=== PATIENT | female | born 1955 | race Caucasian/White ===

== ENCOUNTER 2025-09-24 12:14 | Inpatient (IN) | payer MEDICARE, OTHER ==
[~2025-09-24] VITALS: Ht 175.3 cm; Wt 82.1 kg
[2025-09-24 13:12] LABS: PLATELET COUNT (AUTO) 247 K/uL (150-450); RED BLOOD CELL COUNT(AUTO) 5.08 MIL/uL (4.0-5.2); RED CELL DISTRIBUTION WIDTH 14.7 % (11.5-15.0); WHITE BLOOD COUNT (AUTO) 6.9 K/uL (4.3-11.0)
[2025-09-24 13:20] LABS: CALCIUM, SERUM 9.5 mg/dL (8.5-10.1); CREATININE 1.0 mg/dL (0.6-1.3); SODIUM SERUM 136 mmol/L (136-145); UREA NITROGEN, BLOOD 14 mg/dL (7-18)
[2025-09-24 13:33] LABS: NT-PRO BNP 478 pg/mL (0-125)
[2025-09-24] MEDS ORDERED: LEVO50TA8 PO (15:30)
[2025-09-24] MEDS ORDERED: CYCL10TA9 PO (15:30)
[2025-09-24] MEDS ORDERED: LISI20TA30 PO (15:30)
[2025-09-24] MEDS ORDERED: METO50TA16 PO (15:30)
[2025-09-24] MEDS ORDERED: SERT50TA PO (15:30)
[2025-09-24] MEDS ORDERED: ATOR20TA PO (15:30)
[2025-09-24] MEDS ORDERED: TRIA1CAP6 PO (15:30)
[2025-09-24] MEDS ORDERED: FLUT16SP BNOSTRILS (15:30)
[2025-09-24] MEDS ORDERED: ENOXAPARIN SODIUM 80 MG/0.8 ML DISP.SYRIN SQ ONE (17:09)
[2025-09-24] MEDS: ENOXAPARIN SODIUM 80 MG/0.8 ML DISP.SYRIN SQ ONE (17:12)
[2025-09-24] MEDS ORDERED: MAGNESIUM HYDROXIDE 30 ML UDC PO PRN (17:30)
[2025-09-24] MEDS ORDERED: METOPROLOL TARTRATE 25 MG TABLET PO SCH (17:30)
[2025-09-24] MEDS ORDERED: ACETAMINOPHEN 325 MG TABLET PO PRN (17:30)
[2025-09-24] MEDS ORDERED: MAG HYDROX/AL HYDROX/SIMETH 30 ML UDC PO PRN (17:30)
[2025-09-24] MEDS ORDERED: ONDANSETRON HCL/PF 4 MG/2 ML VIAL IVP PRN (17:30)
[2025-09-24] MEDS ORDERED: Z GUARD REMEDY 4 OZ OINT TP PRN (17:30)
[2025-09-24 17:58] VITALS: BP 163/119; TEMP 98.7; O2SAT 100
[2025-09-24 20:00] VITALS: BP 186/87; TEMP 97.5; O2SAT 97
[2025-09-24] MEDS: METOPROLOL TARTRATE 25 MG TABLET PO SCH (21:21)
[2025-09-24] MEDS: LISINOPRIL (20MG) 20 MG TABLET PO SCH (21:22)
[2025-09-24] MEDS: ATORVASTATIN 40 MG TABLET PO SCH (21:22)
[2025-09-24] MEDS: TRIAMTERENE/HYDROCHLOROTHIAZID (37.5/25MG) 1 UDCAP PO SCH ×2 (21:26→21:29)
[2025-09-24] MEDS: ZOLPIDEM TARTRATE 5 MG TABLET PO PRN (23:57)
[2025-09-25] VITALS (7 sets, daily range): BP systolic 116–152; BP diastolic 77–100; TEMP 97.3–97.9; O2SAT 93–100
[2025-09-25] MEDS: HYDROMORPHONE 1 MG/1 ML DISP.SYRIN IV PRN ×2 (04:57→13:35)
[2025-09-25] MEDS ORDERED: LISINOPRIL (20MG) 20 MG TABLET PO SCH (07:30)
[2025-09-25] MEDS: LEVOTHYROXINE SODIUM 50 MCG TABLET PO SCH (08:09)
[2025-09-25] MEDS: SERTRALINE HCL 50 MG TABLET PO SCH (08:10)
[2025-09-25 08:11] LABS: PLATELET COUNT (AUTO) 259 K/uL (150-450); RED BLOOD CELL COUNT(AUTO) 4.79 MIL/uL (4.0-5.2); RED CELL DISTRIBUTION WIDTH 14.4 % (11.5-15.0); WHITE BLOOD COUNT (AUTO) 6.1 K/uL (4.3-11.0)
[2025-09-25 08:35] LABS: CALCIUM, SERUM 9.2 mg/dL (8.5-10.1); CREATININE 0.9 mg/dL (0.6-1.3); PHOSPHORUS 4.4 mg/dL (2.5-4.9); SODIUM SERUM 140.0 mmol/L (136-145); UREA NITROGEN, BLOOD 16.0 mg/dL (7-18)
[2025-09-26 04:00] VITALS: BP 147/88; TEMP 97.5; O2SAT 95
[2025-09-26 04:23] VITALS: BP 147/88; TEMP 97.5; O2SAT 95
[2025-09-26 07:51] LABS: CALCIUM, SERUM 9.6 mg/dL (8.5-10.1); CREATININE 0.9 mg/dL (0.6-1.3); SODIUM SERUM 139.0 mmol/L (136-145); UREA NITROGEN, BLOOD 18.0 mg/dL (7-18)
[2025-09-26 08:00] VITALS: BP 140/100; TEMP 97.6; O2SAT 99
[2025-09-26 08:08] VITALS: BP 140/105
[2025-09-26] MEDS ORDERED: LOPE2CAP40 PO (11:27)
[2025-09-26] MEDS: LOPERAMIDE HCL (2 MG CAP) 2 MG CAPSULE PO ONE (11:30)
== END 2025-09-26 15:28 | disposition home health service (06) | DRG 310 ==
LOC: ER 14:15 → TELE1 17:41 → MEDSG1 09-25 16:14
PROVIDERS: ADMIT Internal Medicine; ATTEND Nurse Practitioner Acute Care
DX: I47.10 Supraventricular tachycardia, unspecified (principal); I11.0 Hypertensive heart disease with heart failure; E03.9 Hypothyroidism, unspecified; F32.A Depression, unspecified; E78.5 Hyperlipidemia, unspecified; Z88.6 Allergy status to analgesic agent; Z88.5 Allergy status to narcotic agent; Z91.0120 Allergy to eggs, unspecified; Z91.013 Allergy to seafood; Z91.018 Allergy to other foods; G89.29 Other chronic pain; I48.91 Unspecified atrial fibrillation; R19.7 Diarrhea, unspecified
CPT/HCPCS: 36415; 71045-TC; 80048-TC; 83735-TC; 83880; 84100-TC; 84439-TC; 84443-TC; 84484-TC; 85025-TC; 85378-TC; 93307-TC; G0378; J1171; J1650

== ENCOUNTER 2025-10-04 17:50 | Emergency (ER) | payer MEDICARE, OTHER ==
[~2025-10-04] VITALS: Ht 165.1 cm; Wt 82.1 kg
[~2025-10-04 17:50] MED LIST: ATOR20TA PO; CYCL10TA9 PO; FLUT16SP BNOSTRILS; LEVO50TA8 PO; LISI20TA30 PO; LOPE2CAP40 PO; METO50TA16 PO; SERT50TA PO; TRIA1CAP6 PO
[2025-10-04] MEDS ORDERED: dexaMETHasone SOD PHOSPHATE 10 MG/ML VIAL IV ONE (19:00)
[2025-10-04] MEDS ORDERED: PROCHLORPERAZINE EDISYLATE 10 MG/2 ML VIAL IVP ONE (19:00)
[2025-10-04] MEDS ORDERED: LABETALOL HCL IV 100MG VIAL IV ONE (19:00)
[2025-10-04 19:01] LABS: CALCIUM, SERUM 9.1 mg/dL (8.5-10.1); CREATININE 0.8 mg/dL (0.6-1.3); SODIUM SERUM 142.0 mmol/L (136-145); UREA NITROGEN, BLOOD 11.0 mg/dL (7-18)
[2025-10-04] MEDS ORDERED: CLONIDINE HCL 0.1 MG TABLET ONE (20:23)
[2025-10-04 20:25] LABS: PLATELET COUNT (AUTO) 260 K/uL (150-450); RED BLOOD CELL COUNT(AUTO) 4.55 MIL/uL (4.0-5.2); RED CELL DISTRIBUTION WIDTH 14.9 % (11.5-15.0); WHITE BLOOD COUNT (AUTO) 6.8 K/uL (4.3-11.0)
[2025-10-04] MEDS: CLONIDINE HCL 0.1 MG TABLET PO ONE (20:39)
[2025-10-04] MEDS: PROCHLORPERAZINE MALEATE 10 MG TABLET PO ONE (20:39)
[2025-10-04 23:37] VITALS: BP 142/79; TEMP 97.9; O2SAT 98
== END 2025-10-04 23:39 | disposition home or self-care (01) ==
LOC: ER 18:00
DX: I11.9 Hypertensive heart disease without heart failure (principal); I48.91 Unspecified atrial fibrillation; R03.0 Elevated blood-pressure reading, without diagnosis of hypertension; R07.9 Chest pain, unspecified; R51.9 Headache, unspecified; Z88.5 Allergy status to narcotic agent; Z88.6 Allergy status to analgesic agent; Z88.8 Allergy status to other drugs, medicaments and biological substances; Z91.0120 Allergy to eggs, unspecified; Z91.013 Allergy to seafood
CPT/HCPCS: 99285; 70450; 71045; 93005; 85025; 80048; 36415; 84484; Q0164; J7512